=== PATIENT | male | born 1980 | race African-American/Black ===

== ENCOUNTER 2017-06-05 22:42 | Emergency (ER) | payer OTHER ==
[2017-06-05 22:51] VITALS: BP 157/95; PULSE 83; TEMP 98.1; BMI 26.3
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
[2017-06-06] MEDS ORDERED: IBUPROFEN 400 MG TABLET (FP) PO ONE ×2 (01:55→02:07)
[2017-06-06] MEDS ORDERED: METHOCARBAMOL 500 MG TABLET PO ONE (01:55)
[2017-06-06] MEDS ORDERED: METHOCARBAMOL 500 MG TABLET ONE (02:07)
== END 2017-06-06 03:19 | disposition home or self-care (01) ==
LOC: JER 22:42
DX: M62.830 Muscle spasm of back (principal); V49.49XA Driver injured in collision with other motor vehicles in traffic accident, initial encounter; Y92.488 Other paved roadways as the place of occurrence of the external cause; Y93.89 Activity, other specified; Y99.8 Other external cause status
CPT/HCPCS: 72070-TC-FY; 72100-TC-FY; 99281-25